=== PATIENT | male | born 1980 | race Caucasian/White ===

== ENCOUNTER 2016-09-30 17:20 | Inpatient (IN) | payer MEDICAID ==
[~2016-09-30] VITALS: Ht 177.8 cm; Wt 103.9 kg
[2016-09-30 19:25] LABS: APPEARANCE CLEAR (CLEAR); BILIRUBIN NEGATIVE (NEGATIVE); COLOR YELLOW (YELLOW); GLUCOSE NEGATIVE (NEGATIVE); KETONE NEGATIVE (NEGATIVE); LEUKOCYTE ESTERASE NEGATIVE (NEGATIVE); NITRITE NEGATIVE (NEGATIVE); PROTEIN NEGATIVE (NEGATIVE); UROBILINOGEN NORMAL (NORMAL)
[2016-09-30 19:27] LABS: UDS - AMPHET NEGATIVE QUAL (NEGATIVE); UDS - BARB NEGATIVE QUAL (NEGATIVE); UDS - BENZO NEGATIVE QUAL (NEGATIVE); UDS - COCAINE NEGATIVE QUAL (NEGATIVE); UDS - METH NEGATIVE QUAL (NEGATIVE); UDS - OPIATE NEGATIVE QUAL (NEGATIVE); UDS - PCP NEGATIVE QUAL (NEGATIVE); UDS - THC POSITIVE QUAL (NEGATIVE)
[2016-10-01] VITALS (10 sets, daily range): BP systolic 114–141; BP diastolic 77–91; BMI 32.4
--- NOTE | 2016-10-01 03:00 | NUR ---
PT REC'D TO ROOM 2305 ACCOMPANIED BY HOSPITAL STAFF, PT MOVED SELF OVER TO BED, ON ROOM AIR, ALL MONITORS ESTABLISHED, BP 137/88, PT SOMEWHAT COOPERATIVE ANSWERING A FEW QUESTIONS ONLY, LEFT FOREARM PIV SALINE LOCKED, SR UP X 2, CALL LIGHT IN REACH, VISIBLE TO NURSES STATION.
[2016-10-01 04:44] LABS: BASOPHILS 0 % (0-2); EOSINOPHILS 0 % (0-7); HEMATOCRIT 42.8 % (42.0-54.0); HEMOGLOBIN 14.3 g/dL (13.5-17.5); IMMATURE GRANULOCYTES 0.2 % (0-5); MCH 29.9 pg (26.0-34.0); MCHC 33.4 g/dL (31.0-37.0); MCV 89.5 fL (80.0-100.0); MEAN PLATELET VOLUME 11.5 fL (7.4-10.4); MONOCYTES 6.7 % (2-11); NEUTROPHILS 57.1 % (40-80); PLATELET COUNT 141 10x3/uL (130-400); RBC 4.78 10x6/uL (4.20-6.10); RDW 12.3 % (11.5-14.5); WBC 5.1 10x3/uL (4.8-10.8)
--- NOTE | 2016-10-01 05:00 | NUR ---
PT RESTING ON RIGHT SIDE EYES CLOSED, PULLED BP CUFF OFF, REAPPLIED AT THIS TIME, CM-SR, BP STABLE, WILL CONT TO MONITOR CLOSELY FOR CHANGES.
[2016-10-01 05:11] LABS: ACETAMINOPHEN 1.1 ug/mL (10.0-30.0); ALBUMIN 3.1 g/dL (3.4-5.0); ALKALINE PHOSPHATASE 78 U/L (46-116); ALT (SGPT) 51 U/L (10-68); CALC OSMOLALITY 285 mosm/kg (275-300); CALCIUM 8.5 mg/dL (8.5-10.1); CARBON DIOXIDE 26.6 mmol/L (21.0-32.0); CHLORIDE - SERUM 110 mmol/L (98-107); CREATININE - SERUM 0.7 mg/dL (0.6-1.3); GLUCOSE 94 mg/dL (74-106); POTASSIUM - SERUM 4.1 mmol/L (3.5-5.1); PROTEIN - SERUM 6.1 g/dL (6.4-8.2); SODIUM 144 mmol/L (136-145); UREA NITROGEN 11 mg/dL (7-18); eGFR NON AFRICAN AMERICAN > 90 mL/min (90-120)
--- NOTE | 2016-10-01 07:20 | NUR ---
SHIFT REPORT RECEIVED. PT SLEEPING. UNABLE TO GET BP READING. PT NONCOMPLIANT WITH MAINTAINING BP CUFF ON. HEART RATE 73 SINUS RHYTHM. BED LOW, CALL LIGHT IN REACH. WILL CONTINUE TO MONITOR.
--- NOTE | 2016-10-01 08:48 | NUR ---
PT SLEEPING ON LEFT SIDE. HEART RATE 66. BED SIDE RAILS UP X 2. BED LOW POSITION.
--- NOTE | 2016-10-01 09:45 | NUR ---
SPOKE WITH PILAR ABOUT CASE MANAGEMENT CONSULT.
--- NOTE | 2016-10-01 11:06 | NUR ---
PT AWAKE AND ALERT. STATES THAT HE WANTS TO HARM SELF. SANDWICH, MILK, JUICE AND PUDDING PROVIDED. URINE OUTPUT OF 600. PT ASKED FOR BELONGINGS. STATED THAT HE HAS A BAG WITH HIS CLOTHES, BIBLE AND PAPERS. I DID NOT SEE IT IN THE ROOM. I FOUND A BAG WITH PANTS, SHIRT, GLASSES AND SHOES. I HAVE CALLED ER TO ASK IF THEY KNEW WHERE THEY WENT. NURSE IN ER UNABLE TO TELL ME ANYTHING. SHE TRANSFERRED TO SOMEONE ELSE BUT NO ONE ANSWERED. WILL CONTINUE TO SEE IF I CAN FIND WHERE HIS BELONGINGS WENT.
--- NOTE | 2016-10-01 14:50 | NUR ---
* Is the patient Alert and Oriented? Yes 0 * PCP "None" 0 * Pharmacy [facility] [address] * Preadmission Environment Home Alone 0 * ADLs Independent 0 * Additional services required to return to the preadmission environment? Yes 0 * Can the patient safely return to the preadmission environment? No Patient Name: GAYLE CARUSO Admission Status: ER Accout number: [id number] Admission Date: 10-01-2016 : 1980 Admission Diagnosis: Attending: JULIOCESAR Current LOS: 1 Anticipated DC Date: 10-02-2016 Planned Disposition: Psych facility Primary Insurance: UNINSURED DISCOUNT PLAN Discharge Planning Comments: CM met with patient - He is sleeping but arouses to name. He is oriented x 3. He repeatedly fell asleep during interview. He states he does not have a PCP. He states he is not homeless, that he has an apartment - [address] He states his cell phone number is [phone]. He states he does not have any family or friends. He states he was discharged from a psych hospital in [place]. He is agreeable to psych placement at discharge - states, "if you discharge me home I'll kill myself". Explained to patient we are working on placement. He is agreeable to go wherever he is accepted. Will begin referral process. Farm Reporter: Nicole Mendieta
--- NOTE | 2016-10-01 15:36 | NUR ---
PT SLEEPING ON LEFT SIDE. WILL NOT KEEP BP CUFF, O2 SAT, OR TELEMETRY LEADS ON.
--- NOTE | 2016-10-01 17:01 | NUR ---
Call placed to [facility] & [facility] for assistance with placement as patient is uninsured. Spoke with Adwoa Epstein [phone]. Initiated referral process - she states patient is very well known to her. She states she has helped place him 5 times in the last 7 months. He was discharged yesterday from [facility] in [place] after a 9 day hospitalization. She states patient was placed on a bus to go to a jail in [place] as he told [facility] he was homeless. She states they are unable to further assist with funding for placement for him. She states there is a pending referral to the [facility] in [place], but she states she had been working on that the last couple of months but unable to get him in due to lack of beds. She states patient is very manipulative and often threatens to kill himself when he doesn't get his way. CM discussed above with Dr. Leos. Will discuss with Dr. Molina or Dr. Daigle tomorrow.
--- NOTE | 2016-10-01 17:12 | NUR ---
TRAY DELIVERED TO ROOM. PT SLEEPING BUT WOKE UP WHEN ADDRESSED. TRAY SET UP OVER BED.
--- NOTE | 2016-10-01 18:05 | NUR ---
PT WANTS TO HAVE IV REMOVED. TOLD HIM THAT IT IS PROTOCOL THAT EVERYONE IN ICU NEEDS TO HAVE AN IV ACCESS JUST IN CASE WE NEED IT. WAS NOT HAPPY ABOUT IT. BUT REMAINED CALM. ASKED IF HE COULD HAVE SOME DESSERT. GAVE HIM SOME ICE CREAM.
--- NOTE | 2016-10-01 19:30 | NUR ---
REPORT RECIEVED. ASSESSMENT COMPLETED. PT IS ALERT AND ORIENTATED X4. PT HAS SUICIDAL THOUGHTS DO TO HE STATES " I HAVE NO FRIENDS, MY FAMILY IS AGAINST ME AND I HAVE NO JOB." PT IS IN A RELAXED MOOD. WILL CONTINUE TO MONITOR.
--- NOTE | 2016-10-01 21:00 | NUR ---
NO VISITORS AT BEDSIDE AT THIS TIME. PT SAID HE WAS HUNGRY GOT HIM A SANWICH AND DENIES ANY NEEDS AFTER RECIEVING A SNACK WILL CONTINUE TO MONITOR PT.
--- NOTE | 2016-10-01 23:00 | NUR ---
REASSESSMENT COMPLETED. NO ACUTE CHANGES. PT DENIES ANY NEEDS. WILL CONTINUE TO MONITOR.
--- NOTE | 2016-10-02 01:00 | NUR ---
PT VERY ANXIOUS. STATES THINGS LIKE "I WISH I WAS " TRY TO TALK TO HIM AND HELP HIM WITH THESE THOUGHTS AND DENIES ALL THE HELP. PT ASK FOR ICE CREAM AND A COLA GAVE IT TO HIM. PT WILL NOT LEAVE THE TELEMETRY ON. HE RIPS THEM OFF AND DOES THE SAME WITH THE BLOOD PRESSURE. HE TOLD ME THAT IF I WANTED THEM ON THAT I WOULD HAVE TO FIGHT HIM. TOLD HIM THAT WOULD NOT BE NECESSARY AND THAT I WAS HERE TO HELP HIM, NOT HURT HIM. PT LYING IN BED REFUSING TO PUT THE EQUIPMENT ON. BED IN LOWEST POSITION. CALL LIGHT IN REACH. CURTAIN OPEN. WILL CONTINUE TO MONITOR.
--- NOTE | 2016-10-02 03:00 | NUR ---
PT STATES THAT HE DOES NOT WANT TO USE THE BSC AND HE DEMANDS A BATHROOM. I INFORMED HIM THAT THIS IS A CLOSED UNIT AND THAT HE COULD NOT LEAVE AT THIS TIME. PT STATED THAT HE WAS GOING FOR A WALK AROUND THE UNIT. HE FOUND THE UTILITY CLOSET TOILET AND USED THAT INSTEAD OF BSC. PT NOW IN HIS ROOM WITH THE TV ON. BED IN LOWEST POSITION. WILL CONTINUE TO MONITOR.
[2016-10-02 04:40] LABS: BASOPHILS 0.2 % (0-2); EOSINOPHILS 0 % (0-7); HEMATOCRIT 42.5 % (42.0-54.0); HEMOGLOBIN 14.2 g/dL (13.5-17.5); IMMATURE GRANULOCYTES 0.2 % (0-5); LYMPHOCYTES 31.5 % (15-50); MCH 29.8 pg (26.0-34.0); MCHC 33.4 g/dL (31.0-37.0); MCV 89.3 fL (80.0-100.0); MEAN PLATELET VOLUME 11.3 fL (7.4-10.4); MONOCYTES 5.2 % (2-11); NEUTROPHILS 62.9 % (40-80); PLATELET COUNT 147 10x3/uL (130-400); RBC 4.76 10x6/uL (4.20-6.10); RDW 12.3 % (11.5-14.5); WBC 5.2 10x3/uL (4.8-10.8)
[2016-10-02 05:00] LABS: ALKALINE PHOSPHATASE 80 U/L (46-116); ALT (SGPT) 48 U/L (10-68); BILIRUBIN - TOTAL 0.28 mg/dL (0.2-1.3); CALCIUM 8.3 mg/dL (8.5-10.1); CARBON DIOXIDE 27.3 mmol/L (21.0-32.0); CHLORIDE - SERUM 107 mmol/L (98-107); CREATININE - SERUM 0.8 mg/dL (0.6-1.3); POTASSIUM - SERUM 3.9 mmol/L (3.5-5.1); PROTEIN - SERUM 6.1 g/dL (6.4-8.2); SODIUM 142 mmol/L (136-145); UREA NITROGEN 12 mg/dL (7-18); eGFR NON AFRICAN AMERICAN > 90 mL/min (90-120)
--- NOTE | 2016-10-02 05:00 | NUR ---
PT REQUESTED ICE CREAM AND SODA. DELIVERED THOSE ITEMS PROMPTLY. PT STILL REFUSES MONITORING. WILL CONTINUE TO MONITOR PT.
[2016-10-02 05:05] LABS: CALC OSMOLALITY 286 mosm/kg (275-300); GLUCOSE 162 mg/dL (74-106)
[2016-10-02 07:00] VITALS: BP 130/76
[2016-10-02] MEDS ORDERED: EFFEXOR XR150 MG PO (10:53)
[2016-10-02] MEDS ORDERED: STRATTERA10 MG PO (10:55)
[2016-10-02] MEDS ORDERED: CLONIDINE PO (10:58)
[2016-10-02] MEDS ORDERED: CHLOR PO (10:58)
[2016-10-02] MEDS ORDERED: ZYPREXA2.5 MG PO (11:06)
--- NOTE | 2016-10-02 11:09 | NUR ---
10/02/2016 11:02 DCP: Discharge Planning Call placed to admissions @ [facility] in [place] for psych placement .They do not have any inpatient adult beds available. Patient placed on waiting list. Referral faxed to Carmen @ [facility]. Waiting determination.
[2016-10-02 12:57] LABS: HEMOGLOBIN A1C 5.3 % (4.8-6.0)
--- NOTE | 2016-10-02 13:00 | NUR ---
PT WANTING KLONOPIN RESTARTED. INSTRUCT TO PT USUALLY MD DOES NOT RESTART WHAT PT ODS ON. WILL TALK TO DR GAYTAN.
--- NOTE | 2016-10-02 13:25 | NUR ---
PT VERY AGGITATED. ATIVAN 2MG GIVEN IM.
[2016-10-02 15:00] VITALS: BP 130/76
--- NOTE | 2016-10-02 16:00 | NUR ---
UP AT DESK REQUESTING A KLONOPIN.
--- NOTE | 2016-10-02 16:29 | NUR ---
LAYING IN BED READING. VOICES NO CO AT TIME.
[2016-10-02] MEDS ORDERED: KLONOPIN1 MG PO (17:57)
--- NOTE | 2016-10-02 18:00 | NUR ---
UP AT DESK REQUESTING A SHOWER. INSTRUCT PT DR LUKAS PRIETO AND WILL GIVE SOON.
[2016-10-02 19:00] VITALS: BP 118/74
--- NOTE | 2016-10-02 19:10 | NUR ---
Received patient sitting up at bedside, assessment completed per flowsheet. Patient AO x4, calm and cooperative. Verbalizes no thoughts of self harm, affect is expressive and happy. Eyes PERRLA @ 4mm with brisk response, wears glasses. S1/S2 noted NSR with HR 72, rhythmic and regular. Breathing is even and unlabored on room air with O2 sat 96%, lung sounds clear all lobes. Abdomen is soft and flat with bowel sounds active x4, non-tender. Patient ambulates self to bathroom, clear yellow urine noted. No weakness noted all extemities with all pulses palpable, cap refill < 3 sec. No IV access, patient removed. C/O pain L elbow 06/23, PRN medication given and will reassess. Provided snack at patient request, states becoming "stir crazy" sitting around. Provided magazine for reading, shown how to use TV remote. No further needs at this time, all VSS and will continue to monitor.
--- NOTE | 2016-10-02 21:10 | NUR ---
No visitors at this time, patient sitting up in bed with eyes open watching TV. Patient is calm and cooperative, denies pain or other needs at this time. Will continue to monitor.
--- NOTE | 2016-10-02 21:30 | NUR ---
Patient not on unit, waiting room and floor searched. embroidery supervisor and Security notifed.
--- NOTE | 2016-10-02 21:40 | NUR ---
Patient states he "was going out for a cigarette and to look for his ID". Patient found in ER by security, returned to unit. Explained to patient that he has to stay in the unit, verbalized understanding. Provided patient snack and returned to room.
--- NOTE | 2016-10-02 22:40 | NUR ---
Patient belongings found in ER. Cell phone, wallet, keys returned to patient. Medications held to be sent to pharmacy in AM.
[2016-10-02 23:00] VITALS: BP 124/81
--- NOTE | 2016-10-02 23:00 | NUR ---
Reassessment completed per flowsheet, patient sitting up in bed watching TV. Patient calm and cooperative, expresses strong desire for cigarette. Nicotine patch in place, patient states "it doesn't help". S1/S2 noted NSR with HR 78, rhythmic and regular. Breathing is even and unlabored on room air, O2 sat 95%. Patient denies pain or other needs at this time, all VSS and will continue to monitor.
--- NOTE | 2016-10-03 01:00 | NUR ---
Patient resting in bed with eyes closed, breathing is even and unlabored. No S/S of distress noted, will continue to monitor.
[2016-10-03 03:00] VITALS: BP 109/62
--- NOTE | 2016-10-03 03:20 | NUR ---
Reassessment completed per flowsheet, patient resting in bed with eyes closed. Patient denies intent to harm self or others, calm and cooperative. S1/S2 noted NSR on telemetry with HR 67, rhythmic and regular. Breathing is even and unlabored on room air, O2 sat 96%. All pulses palpable with cap refill < 3 sec, skin warm to touch. Patient denies pain or other needs at this time, all VSS and will continue to monitor.
--- NOTE | 2016-10-03 05:00 | NUR ---
Patient resting in bed with eyes closed, breathing is even and unlabored on room air. Patient denies pain or other needs at this time, all VSS and will continue to monitor.
[2016-10-03 07:00] VITALS: BP 150/108
[2016-10-03 10:27] VITALS: Ht 177.8 cm; Wt 103.9 kg
--- NOTE | 2016-10-03 11:00 | NUR ---
CONTACTED Rx ABOUT [facility], THEY ARE PACKAGING IT AND WILL DELIVER TO FLOOR WHEN COMPLETED. WILL GIVE WHEN ARRIVES TO FLOOR.
--- NOTE | 2016-10-03 14:22 | NUR ---
NO NOTED DISTRESS AT PRESENT
[2016-10-03] MEDS ORDERED: LISINOPRIL10 MG PO (14:59)
[2016-10-03] MEDS ORDERED: NICODERM C1 PATCH .3 TRANSDERM (14:59)
--- NOTE | 2016-10-03 15:05 | NUR ---
CM met with patient - he is alert & oriented & cooperative. He states he wants to go to an inpatient treatment facility for his depression/suicidal thoughts, but also states he's "safe to go home". Rec'd call from Adwoa with [facility] - She states she has learned that patient has an active Medicaid number. She reports patient can not return to [facility] in [place]. Additional referrals have been faxed to [facility], [facility], & [facility]. Waiting determination. CM will follow.
--- NOTE | 2016-10-03 15:16 | NUR ---
Rec'd call from [place] with [facility] - patient has been accepted to their facility. He will be admitted to Dr. Ortiz. Room assignment 8079 Bed 1. Nursing to call report to [phone]. Patient will transfer via ambulance. Dr. Leos has completed peer to peer.
--- NOTE | 2016-10-03 17:19 | NUR ---
ALL DC PAPERWORK COMPLETED AND [facility] NOTIFIED OF TRANSFER
--- NOTE | 2016-10-03 18:25 | NUR ---
TO [facility].
== END 2016-10-03 18:26 | disposition short-term general hospital (02) | DRG 918 ==
LOC: OBSVTIME → D.ER 17:20 → OBSVTIME 18:55 → D.ICU 18:55 → OBSVTIME 10-01 01:57 → D.ER 10-01 01:57 → D.ICU 10-01 01:57
PROVIDERS: Emergency Medicine; ADMIT Family Medicine
DX: T42.4X2A Poisoning by benzodiazepines, intentional self-harm, initial encounter (principal); T43.592A Poisoning by other antipsychotics and neuroleptics, intentional self-harm, initial encounter; T46.4X2A Poisoning by angiotensin-converting-enzyme inhibitors, intentional self-harm, initial encounter; Y90.0 Blood alcohol level of less than 20 mg/100 ml; Z72.89 Other problems related to lifestyle; F32.9 Major depressive disorder, single episode, unspecified; Z72.0 Tobacco use; I10 Essential (primary) hypertension; F12.90 Cannabis use, unspecified, uncomplicated

== ENCOUNTER 2017-01-25 19:11 | Emergency (ER) | payer MEDICAID ==
[2016-10-03 10:27] VITALS: BMI 32.8
[~2017-01-25 19:11] MED LIST: CHLOR PO; CLONIDINE PO; EFFEXOR XR150 MG PO; KLONOPIN1 MG PO; LISINOPRIL10 MG PO; NICODERM C1 PATCH .3 TRANSDERM; STRATTERA10 MG PO; ZYPREXA2.5 MG PO
== END 2017-01-25 20:18 | disposition home or self-care (01) ==
LOC: D.ER 19:11
DX: Z86.59 Personal history of other mental and behavioral disorders (principal)

== ENCOUNTER 2018-01-29 19:24 | Emergency (ER) | payer SELFPAY ==
[~2018-01-29] VITALS: Ht 177.8 cm; Wt 100.0 kg
[2018-01-29 19:36] VITALS: BP 148/106; Ht 177.8 cm; Wt 100.0 kg
[2018-01-29] MEDS ORDERED: REXULTI1 MG PO (19:38)
== END 2018-01-29 20:01 | disposition left against medical advice (07) ==
LOC: D.ER 19:24
DX: Z02.9 Encounter for administrative examinations, unspecified (principal)